=== PATIENT | male | born 1955 | race Caucasian/White ===

== ENCOUNTER 2022-04-17 16:48 | Emergency (ER) | payer MEDICAID, MEDICARE ==
[~2022-04-17] VITALS: Ht 182.9 cm; Wt 81.8 kg
--- NOTE | 2022-04-17 17:00 | NUR ---
PT REPORTS ADMINISTERING 32 UNITS INSULINE FOR GLUCOSE CORRECTION. HE REPORTS HE GAVE HIMSELF AN ADITIONAL 32 UNITS FOR A TOTAL OF 64 UNITS.
[2022-04-17] MEDS ORDERED: normal saline 1000ML IV soln IVB ONE (17:20)
[2022-04-17 17:36] LABS: BASOPHILS # (AUTO) 0.1 X10'3 (0-0.2); BASOPHILS % (AUTO) 0.5 % (0-1); EOSINOPHILS # (AUTO) 0.4 X10'3 (0-0.9); EOSINOPHILS % (AUTO) 3.7 % (0-6); HEMATOCRIT 33.1 % (42.0-52.0); HEMOGLOBIN 10.9 g/dl (14.0-17.9); LYMPHOCYTES # (AUTO) 1.8 X10'3 (1.1-4.8); LYMPHOCYTES % (AUTO) 15.7 % (21-51); MEAN CORPUSCULAR HGB CONC 32.8 g/dL (33.0-36.5); MEAN CORPUSCULAR VOLUME 85.3 FL (78-98); MEAN PLATELET VOLUME 7.5 FL (7.4-10.4); MONOCYTES # (AUTO) 0.7 X10'3 (0-0.9); MONOCYTES % (AUTO) 6.6 % (2-12); NEUTROPHILS # (AUTO) 8.4 X10'3 (1.8-7.7); NEUTROPHILS % (AUTO) 73.5 % (42-75); PLATELET COUNT 382 X10'3 (140-440); RED BLOOD COUNT 3.88 X10'6 (4.70-6.10); RED CELL DISTRIBUTION WIDTH 13.7 % (11.5-14.5); WHITE BLOOD COUNT 11.4 X10'3 (4.5-11.0)
[2022-04-17 17:45] LABS: ALBUMIN 3.5 G/DL (3.4-5.0); ALBUMIN/GLOBULIN RATIO 1.2 (1.1-1.5); ALKALINE PHOSPHATASE 106 IU/L (46-116); ANION GAP 7 (8-16); ASPARTATE AMINO TRANSFERASE 18 U/L (10-37); BILIRUBIN,TOTAL 1.2 MG/DL (0.1-1.0); BLOOD UREA NITROGEN 23 MG/DL (7-18); BUN/CREATININE RATIO 21.1 (5.4-32.0); CALCIUM 9.1 MG/DL (8.5-10.1); CHLORIDE 103 MMOL/L (99-107); CREATININE 1.09 MG/DL (0.60-1.10); GLUCOSE 75 MG/DL (70-104); SODIUM 136 MMOL/L (135-145); TOTAL CARBON DIOXIDE 26.5 MMOL/L (24-32); TOTAL PROTEIN 6.5 G/DL (6.4-8.2); eGFR 67 ML/MIN
[2022-04-17 18:08] LABS: ALANINE AMINOTRANSFERASE 28 U/L (12-78)
[2022-04-17] MEDS ORDERED: dextrose 50%-water 50ml dispensing syringe IV ONE (18:10)
[2022-04-17 18:21] LABS: ETHANOL < 0.010 GM/DL (0.0-0.010)
[2022-04-17 20:49] VITALS: BP 119/62
== END 2022-04-17 20:51 | disposition home or self-care (01) ==
LOC: ER 16:48
DX: E13.649 Other specified diabetes mellitus with hypoglycemia without coma (principal); Z88.1 Allergy status to other antibiotic agents
CPT/HCPCS: 36415; 71045; 80053; 80320; 82948; 84484; 85025; 93005; 96361; 96374; 99285; J3490; J7030

== ENCOUNTER 2025-01-12 08:04 | Day surgery (SDC) | payer BC, MEDICAID ==
[2025-01-12] VITALS (7 sets, daily range): BP systolic 102–120; BP diastolic 66–82; PULSE 69–85; RESP 12–16; TEMP 97.4; O2SAT 97–100
[~2025-01-12] VITALS: Ht 188 cm; Wt 84.8 kg
[~2025-01-12 08:04] MED LIST: ARIP2TAB67 PO; ASPI-611 PO; ATOR40TA72 PO; BUPR200T30 PO; DEUT6TAB PO; INSU100I29 SQ; INSU100I8 SQ; LEVO50TA8 PO; LIDOcaine 2% (20mg/ml) 5ml vial ONE; ringers solution, lacted 1,000 ML IV SCH; simethicone 40mg/0.6ml oral drops 15ml ONE
[2025-01-12] MEDS ORDERED: propofol inj 20 ML IV ONE (11:43)
== END 2025-01-12 12:49 | disposition home or self-care (01) ==
LOC: GI LAB 08:04
PROVIDERS: ATTEND Internal Medicine Gastroenterology
DX: R10.13 Epigastric pain (principal); K22.70 Barrett's esophagus without dysplasia; R15.9 Full incontinence of feces; E11.40 Type 2 diabetes mellitus with diabetic neuropathy, unspecified; E78.5 Hyperlipidemia, unspecified; E03.9 Hypothyroidism, unspecified; F32.A Depression, unspecified; I10 Essential (primary) hypertension; I25.10 Atherosclerotic heart disease of native coronary artery without angina pectoris; I25.2 Old myocardial infarction; N40.0 Benign prostatic hyperplasia without lower urinary tract symptoms; Z79.899 Other long term (current) drug therapy
CPT/HCPCS: 43239; 88305; 88342; J2003; J2704; J7120; Z7512; A4620